=== PATIENT | male | born 1950 | race Caucasian/White ===

== ENCOUNTER 2019-01-21 23:01 | Inpatient (IN) | payer MEDICARE, OTHER ==
[~2019-01-21] VITALS: Ht 180.3 cm; Wt 90.0 kg
[2019-01-21 23:55] LABS: BASOPHILS # (AUTO) 0.1 K/uL (0.0-8.0); EOSINOPHILS # (AUTO) 0.3 K/uL (0.0-0.7); EOSINOPHILS % (AUTO) 4.2 % (0.0-7.0); HEMATOCRIT 38.1 % (36.7-47.1); LYMPHOCYTES % (AUTO) 31.4 % (20.5-51.5); MEAN CORPUSCULAR HEMOGLOBIN 31.2 uug (23.8-33.4); MEAN CORPUSCULAR HGB CONC 34 g/dL (32.5-36.3); MEAN CORPUSCULAR VOLUME 91.3 fL (73.0-96.2); MONOCYTES # (AUTO) 0.7 K/uL (2.0-10.0); MONOCYTES % (AUTO) 10.4 % (0.0-11.0); NEUTROPHILS # (AUTO) 3.4 K/uL (1.8-8.9); PLATELET COUNT (AUTO) 194 K/uL (152-348); RED BLOOD CELL COUNT(AUTO) 4.17 MIL/uL (4.06-5.63); WHITE BLOOD COUNT (AUTO) 6.4 K/uL (3.6-10.2)
[2019-01-21 23:58] LABS: BILIRUBIN,DIRECT 0.1 mg/dL (0.0-0.2); BILIRUBIN,TOTAL 0.5 mg/dL (0.2-1.0); CREATININE 0.9 mg/dL (0.6-1.3); TOTAL PROTEIN, SERUM 6.2 g/dL (6.4-8.2)
--- NOTE | 2019-01-21 23:59 | NUR ---
Patient came in to the ER with chief complaint of BLE swelling x12 days. Patient AAOx4. In no acute respiratory distress. No cardiovascular concern. No /GI concern. Bd in lock position. Fall precaution per protocol.
--- NOTE | 2019-01-22 00:03 | NUR ---
US tech at bedside for [facility] US BLE.
--- NOTE | 2019-01-22 00:39 | NUR ---
BENNY MENENDEZ at bedside.
[2019-01-22] MEDS ORDERED: VANCOMYCIN IV 1,000 MG in IV DEXTROSE 5% 250 ML IV ONE (00:45)
[2019-01-22] MEDS ORDERED: CEFAZOLIN 2 G in IV DEXTROSE 5% 100 ML IV ONE (00:45)
[2019-01-22] MEDS ORDERED: CEFAZOLIN 1 G VIAL ONE (00:52)
[2019-01-22] MEDS ORDERED: VANCOMYCIN IV 200 ML ONE (01:19)
--- NOTE | 2019-01-22 02:08 | NUR ---
ER on phone with Ronny Lezama MD
--- NOTE | 2019-01-22 02:17 | NUR ---
REPORT GIVEN TO SHEA HASSAN Pt. admitted to MED SURG , under care of Dr. SELIN AN Belongs List completed. MED RECON COMPLETE- PATIENT DOES NOT TAKE ANY MEDICATIONS.
--- NOTE | 2019-01-22 02:28 | NUR ---
Received report from Alfonzo RN in the ED, reviewed current labs, weigher and charger was updated, room is ready.
[2019-01-22] MEDS ORDERED: HYDROCODONE/APAP 5-325MG TABLET PO PRN (02:45)
[2019-01-22] MEDS ORDERED: ONDANSETRON 4 MG/2 ML VIAL IV PRN (02:45)
[2019-01-22] MEDS ORDERED: VANCOMYCIN IV 1 G in PREMIXED 0 EACH IV SCH (02:45)
[2019-01-22] MEDS ORDERED: ZOLPIDEM 5 MG TABLET PO PRN (02:45)
[2019-01-22] MEDS ORDERED: Z GUARD REMEDY PASTE 57 GM TUBE TOP PRN (02:45)
[2019-01-22] MEDS ORDERED: ACETAMINOPHEN 325 MG TABLET PO PRN (02:45)
[2019-01-22] MEDS ORDERED: MAGNESIUM HYDROXIDE 30 ML LIQUID UDC PO PRN (02:45)
--- NOTE | 2019-01-22 03:00 | NUR ---
Patient is in the room. Arrived on a gurney. Charge nurse notified.
[2019-01-22 03:09] VITALS: BP 109/66
--- NOTE | 2019-01-22 03:30 | NUR ---
Patient was assessed and history was taken. Comfort and safety measures are in place. IVs were flushed and locked. Orientation to the room provided. No acute distress noted. patient is in good mood, report mild leg pain, declined meds for pain.
[2019-01-22] MEDS: FUROSEMIDE 40 MG/4 ML VIAL IV SCH ×3 (03:46→21:00)
[2019-01-22 06:43] VITALS: BP 105/56
--- NOTE | 2019-01-22 07:48 | NUR ---
Report given to jered HASSAN. Patient slept well, diuresing on Lasix well. Comfort and safety measures are in place. No acute distress noted.
[2019-01-22] MEDS: ENOXAPARIN SODIUM 40 MG/0.4 ML DISP.SYRIN SQ SCH (08:23)
--- NOTE | 2019-01-22 10:01 | NUR ---
Called pharmacy to check if vanco levels need to be drawn prior to today's scheduled dose. Per pharmacist okay to give without lab draw.
--- NOTE | 2019-01-22 11:28 | NUR ---
Clinical Pharmacy Note: Vancomycin Dosing per Pharmacy Subjective: Vancomycin IV to start on this 68 yo male patient for cellulitis Objective: BUN 12/Scr 0.9 (01/21) WBC 6.4 (01/21) Temperature 97.6 ht 180 cm wt 92.9 kg Assessment/Plan: Will start vancomycin 1500mg IVPB Q15hr for a predicted vancomycin steady state trough level of 15.8 mcg/ml. 1st dose today at 1300. Will draw a vancomycin trough level prior to the 4th dose of vancomycin (not ordered yet). Will monitor renal function and adjust vancomycin dose, if needed, should renal function change significantly. Will follow daily. Addendum: 01/22/19 at 1131 by CHRIS COREAS patient received vanco 1 gm IVPB on 01/22 at 0100 in ED
[2019-01-22] MEDS: VANCOMYCIN IV 1,500 MG in IV DEXTROSE 5% 500 ML IV SCH (12:11)
[2019-01-22 12:20] VITALS: BP 116/74
[2019-01-22 15:50] VITALS: BP 104/64
--- NOTE | 2019-01-22 18:17 | NUR ---
Patient resting, alert and oriented. No distress noted or complaints of pain. Antibiotic treatment on vancomycin continued today. Will endorse care to oncoming shift.
[2019-01-22 19:37] VITALS: BP 100/57
--- NOTE | 2019-01-22 23:30 | NUR ---
Patient AAOx4. No acute distress noted. No SOB. Verbalizes right lower extremity burning sensation. Denies prn pain med. IV on left and right AC intact and patent. Held ordered 2100 Lasix. Rechecked BP q1h, patient maintains decreased BP. Did not administer. Charge nurse aware. Currently resting comfortably in bed. Safety and comfort measures provided. Call light within reach. All needs met. Will continue to monitor throughout shift.
[2019-01-23 00:22] VITALS: BP 103/59
--- NOTE | 2019-01-23 03:24 | NUR ---
No vanco trough level. Called pharmacy if it is okay to administer without lab draw. Per pharmacy since it is the second dose, okay to administer without trough
[2019-01-23 03:37] VITALS: BP 90/43
[2019-01-23] MEDS: VANCOMYCIN IV 1,500 MG in IV DEXTROSE 5% 500 ML IV SCH ×2 (04:06→18:19)
[2019-01-23 06:31] LABS: BASOPHILS # (AUTO) 0.1 K/uL (0.0-8.0); BASOPHILS % (AUTO) 1.1 % (0.0-2.0); EOSINOPHILS # (AUTO) 0.3 K/uL (0.0-0.7); EOSINOPHILS % (AUTO) 5.5 % (0.0-7.0); HEMATOCRIT 38.1 % (36.7-47.1); HEMOGLOBIN 13.4 g/dL (12.5-16.3); LYMPHOCYTES # (AUTO) 1.3 K/uL (20.0-40.0); LYMPHOCYTES % (AUTO) 25.3 % (20.5-51.5); MEAN CORPUSCULAR HEMOGLOBIN 31.8 uug (23.8-33.4); MEAN CORPUSCULAR HGB CONC 35 g/dL (32.5-36.3); MEAN CORPUSCULAR VOLUME 90.5 fL (73.0-96.2); MONOCYTES # (AUTO) 0.5 K/uL (2.0-10.0); MONOCYTES % (AUTO) 9.7 % (0.0-11.0); NEUTROPHILS # (AUTO) 2.9 K/uL (1.8-8.9); NEUTROPHILS % (AUTO) 58.4 % (38.5-71.5); PLATELET COUNT (AUTO) 182 K/uL (152-348); RED BLOOD CELL COUNT(AUTO) 4.21 MIL/uL (4.06-5.63)
--- NOTE | 2019-01-23 06:32 | NUR ---
Patient slept throughout the night. NO acute distress noted. Comfort provided. Safety maintained. All needs met, call light within reach. Continue plan of care.
[2019-01-23 06:51] LABS: THYROID STIMULATING HORMONE 1.161 mIU/mL (0.358-3.740)
[2019-01-23 06:58] LABS: CREATININE 0.9 mg/dL (0.6-1.3); MAGNESIUM 1.9 mg/dL (1.8-2.4)
--- NOTE | 2019-01-23 07:30 | NUR ---
PATIENT RECEIVED ON BED AWAKE AAOX4 NO ACUTE DISTRESS NOTED. IV ACCESS ON RIGHT AND LEFT AC #22 INTACT AND PATENT. BILATERAL LOWER EXTREMITIES ADVISED TO KEEP ELEVATED TO REDUCE SWELLING. PATIENT STATES BLE LOOKS BETTER, RIGHT LEG SLIGHTLY MORE SWOLLEN THEN LEFT LEG. WOF BP, DECREASES WITH LASIX, PER ISOTOPE HYDROLOGIST RN. NO COMPLAINTS OF PAIN/DISCOMFORT AT THIS TIME. COMFORT MEASURES PROVIDED. CALL LIGHT WITHIN REACH. WILL CONTINUE TO MONITOR CLOSELY
[2019-01-23 07:40] LABS: POTASSIUM 3.5 mmol/L (3.5-5.1)
[2019-01-23] MEDS: ENOXAPARIN SODIUM 40 MG/0.4 ML DISP.SYRIN SQ SCH (08:37)
[2019-01-23] MEDS ORDERED: PIPERACILLIN/TAZOBACTAM/D5W 3.375 G in PREMIXED 1 EACH IV SCH (09:15)
[2019-01-23] MEDS: PIPERACILLIN/TAZOBACTAM/D5W 3.375 G in PREMIXED 1 EACH IV SCH ×2 (10:00→18:03)
[2019-01-23 12:05] VITALS: BP 115/60
--- NOTE | 2019-01-23 13:51 | NUR ---
Clinical Pharmacy Note: Vancomycin Dosing per Pharmacy Subjective: Vancomycin IV to continue on this 68 yo male patient for cellulitis Objective: BUN 10/Scr 0.9 WBC 5.0 Temperature 97.8 ht 180 cm wt 92.9 kg Assessment/Plan: Will continue vancomycin 1500mg IVPB Q15hr for a predicted vancomycin steady state trough level of 15.8 mcg/ml. 3rd dose tonight at 1900. Will draw a vancomycin trough level prior to the 4th dose of vancomycin (due tomorrow am at 0930). Will check level in am and adjust as needed. Will follow
[2019-01-23 16:20] VITALS: BP 110/55
--- NOTE | 2019-01-23 18:30 | NUR ---
PATIENT REMAINED STABLE THROUGHOUT SHIFT. CURRENTLY RUNNING ZOSYN IVATB ON RIGHT FOREARM AND VANCOMYCIN IVATB ON LEFT AC, INFUSING WELL. BLE HAS REDUCED SWELLING SIGNIFICANTLY. ADVISED PATIENT TO KEEP LEGS ELEVATED FROM TIME TO TIME. ALL NEEDS ATTENDED AND ANTICIPATED. CALL LIGHT WITHIN REACH. WILL ENDORSE ACCORDINGLY
[2019-01-23 19:21] VITALS: BP 115/72
[2019-01-24] MEDS: PIPERACILLIN/TAZOBACTAM/D5W 3.375 G in PREMIXED 1 EACH IV SCH ×2 (02:22→10:30)
[2019-01-24 03:23] VITALS: BP 111/56
--- NOTE | 2019-01-24 05:55 | NUR ---
Patient slept throughout the night. Tolerated abx. No acute distress. No SOB. Denies pain. Safety and comfort maintained at all times. All needs met. Call light within reach. Will endorse to incoming shift accordingly
--- NOTE | 2019-01-24 07:46 | NUR ---
patient is awake in bed, no acute distress noted
[2019-01-24] MEDS ORDERED: FUROSEMIDE 20 MG/2 ML VIAL IV SCH (09:00)
[2019-01-24] MEDS: ENOXAPARIN SODIUM 40 MG/0.4 ML DISP.SYRIN SQ SCH (09:02)
[2019-01-24] MEDS ORDERED: VANCOMYCIN IV 1,500 MG in IV DEXTROSE 5% 500 ML IV SCH (11:00)
[2019-01-24 12:00] VITALS: BP 111/65
[2019-01-24] MEDS ORDERED: SULF1TAB48 PO (13:01)
--- NOTE | 2019-01-24 13:51 | NUR ---
Clinical Pharmacy Note: Vancomycin Dosing per Pharmacy Subjective: Vancomycin IV to continue on this 68 yo male patient for cellulitis Objective: BUN 10/Scr 0.9 (01/23) WBC 5.0 (01/23) Temperature 97.6 Vanco trough level: 11.3 (on 01/24 at 0930) ht 180 cm wt 92.9 kg Assessment/Plan: Since vanco trough level is 11.3 mcg/ml, will change vancomycin dose to 1500mg IVPB Q13hr for a predicted vancomycin steady state trough level of 15 mcg/ml. 1st dose today at 1100. Will draw a vancomycin trough level prior to the 4th dose of vancomycin ( not yet ordered). Will monitor renal function & adjust the dose if needed. Will follow
--- NOTE | 2019-01-24 13:52 | NUR ---
PATIENT IS ALERT, ORIENTED X4, VERBALLY RESPONSIVE, NO SOB , RESP EVEN NONLABORED,SKIN WARM AND DRY TO TOUCH, PATIENT UNDERSTOOD DISCHARGE INSTRUCTIONS. PATIENT IS ABLE TO DRIVE HIM SELF AND GOING HOME BY HIMSELF, IV REMOVED, BELONGINGS ARE ACCOUNTED AND SIGNED, ID [id number] REMOVED
== END 2019-01-24 14:20 | disposition home or self-care (01) | DRG 603 ==
LOC: ER 23:04 → MEDSURG3 01-22 02:15
PROVIDERS: ATTEND Internal Medicine
DX: L03.115 Cellulitis of right lower limb (principal); L03.116 Cellulitis of left lower limb; R60.0 Localized edema; Z59.0 Homelessness; N40.0 Benign prostatic hyperplasia without lower urinary tract symptoms; Z87.891 Personal history of nicotine dependence
CPT/HCPCS: 36415; 71045; 83605; 83735; 84100; 84443; 85025; 87040; 97116; 97530; A4663; G0378; J0690; J1650; J1940; J2543; J3370; J7040; J7060